=== PATIENT | female | born 1975 | race Two or more races ===

== ENCOUNTER 2018-08-10 10:34 | Emergency (ER) | payer MEDICAID ==
[~2018-08-10] VITALS: Ht 170.2 cm; Wt 131.5 kg
[2018-08-10 11:23] LABS: Albumin 3.7 g/dL (3.4-5.0); Basophils # (auto) 0.1 uL; Basophils % (auto) 1.7 % (0.0-2.0); Calcium 8.7 mg/dL (8.5-10.1); Eosinophils # (auto) 0.1 uL; Eosinophils % (auto) 0.9 % (0.0-7.0); Hematocrit 40.6 % (36.0-46.0); Hemoglobin 13.8 g/dL (12.2-16.2); Lymphocytes % (auto) 26.6 % (10.0-50.0); Mean Corpuscular Hemoglobin 31.3 pg (28.0-32.0); Mean Corpuscular Hgb Conc. 33.9 g/dL (32.0-36.0); Mean Corpuscular Volume 92.3 fL (80.0-100.0); Monocytes # (auto) 0.4 uL; Monocytes % (auto) 5.7 % (0.0-12.0); Neutrophils # (auto) 4.9 uL; Neutrophils % (auto) 65.1 % (37.0-80.0); Platelet Count (auto) 297 10^3/uL (140-450); Potassium 3.9 mmol/L (3.5-5.1); Red Cell Distribution Width 13.5 % (11.8-14.3); White Blood Cell 7.5 10^3/uL (4.4-10.8)
[2018-08-10 11:26] LABS: BUN/Creatinine Ratio 18.5; Bilirubin, Total 0.7 mg/dL (0.2-1.0); INR < 0.93 (0.9-1.15); Partial Thromboplastin Time 29.9 sec (23.64-32.05); Total Protein 7.7 g/dL (6.4-8.2)
[2018-08-10] MEDS ORDERED: MORPHINE SULFATE 4 MG/ML SYR/VIAL IV ONE (12:15)
[2018-08-10] MEDS ORDERED: ONDANSETRON HCL 4 MG/2 ML VIAL IV ONE (12:15)
[2018-08-10 14:03] VITALS: BP 116/74
== END 2018-08-10 14:44 | disposition home or self-care (01) ==
LOC: ER 10:34
DX: R04.0 Epistaxis (principal)
CPT/HCPCS: 30901; 36415; 80053; 85025; 85610; 85730; 96374; 96375; 99284; J2270; J2405; J7030

== ENCOUNTER 2018-08-11 11:23 | Emergency (ER) | payer MEDICAID ==
[~2018-08-11] VITALS: Ht 170.2 cm; Wt 131.5 kg
[2018-08-11 12:52] VITALS: BP 144/72
== END 2018-08-11 15:30 | disposition home or self-care (01) ==
LOC: ER 11:40
DX: Z48.00 Encounter for change or removal of nonsurgical wound dressing (principal)